=== PATIENT | male | born 1985 | race Caucasian/White ===

== ENCOUNTER 2021-01-23 04:56 | Emergency (ER) | payer BC ==
[~2021-01-23] VITALS: Ht 172.7 cm; Wt 83.9 kg
[2021-01-23 05:01] VITALS: BP_SYST 131
--- NOTE | 2021-01-23 05:01 | NUR ---
Came in ER ambulatory from home this 35 year old male, AAOX4, breathing spontaneously at room air, not in distress noted. With chief complaints of right flank pain since 1AM but worsened at 3AM associated with burning scanty urination, denies nausea and vomiting. No known medical/ surgical hsitory, denies allergy. Vital signs stable
--- NOTE | 2021-01-23 05:03 | NUR ---
Pt came into ER with complaint of right sided sharp flank pain X1day and the feeling of needing to pee but unable to pee. Pt is AAOX4 speaking full sentences. Pt reports some burning upon urination. Pt reports this happened X7days ago but went away. VSS jose angelin boogie stone attached to monitor.
--- NOTE | 2021-01-23 05:04 | NUR ---
Pt ambulated to restroom for urine specimen.
--- NOTE | 2021-01-23 05:10 | NUR ---
# 20 gauge angiocath placed to RAC. Use of asceptic technique. Opsite placed over site. Blood return noted. Blood for lab drawn from site. Flushed with 10 cc of normal saline. No evidence of infiltration noted. Patient tolerated well.
--- NOTE | 2021-01-23 05:17 | NUR ---
Blood and urine specimen collected and sent to lab.
--- NOTE | 2021-01-23 05:18 | NUR ---
Seen and examined by Dr. Ceron, ER Attending
[2021-01-23] MEDS: NACL 0.9% 1,000 ML IV ONE (05:22)
[2021-01-23] MEDS: KETOROLAC TROMETHAMINE 30 MG VIAL IVP ONE (05:23)
[2021-01-23 05:25] LABS: HEMATOCRIT 44.1 % (36-54); MEAN CORPUSCULAR VOLUME 88 fL (79.0-98.0); RED CELL DISTRIBUTION WIDTH 13.8 % (9.0-15.0)
[2021-01-23 05:27] LABS: BILIRUBIN,URINE NEGATIVE (NEGATIVE); BLOOD, URINE 3+ (NEGATIVE); CLARITY/URINE CLEAR (CLEAR); COLOR,URINE YELLOW (YELLOW); GLUCOSE,URINE NEGATIVE (NEGATIVE); KETONES,URINE NEGATIVE (NEGATIVE); LEUKOCYTE ESTERASE ,URINE NEGATIVE (NEGATIVE); NITRITE, URINE NEGATIVE (NEGATIVE); PH,URINE 5.5 (5.0-8.0); PROTEIN URINE NEGATIVE (NEGATIVE); UROBILINOGEN,URINE 0.2 (0.2-1.0)
[2021-01-23 05:29] LABS: BACTERIA,URINE FEW /HPF (None Seen); BASOPHILS % (AUTO) 0.4 % (0.0-2.0); EOSINOPHILS # (AUTO) 0.4 K/uL (0.0-0.4); EOSINOPHILS % (AUTO) 4.3 % (0.0-4.0); HEMOGLOBIN 14.9 g/dL (14.0-18.0); LYMPHOCYTES # (AUTO) 4.5 K/uL (1.0-5.5); LYMPHOCYTES % (AUTO) 44.2 % (20.5-51.5); MEAN CORPUSCULAR HEMOGLOBIN 30 pg (27-31); MEAN CORPUSCULAR HGB CONC 34 % (32-36); MONOCYTES # (AUTO) 0.8 K/uL (0.0-1.0); MONOCYTES % (AUTO) 7.5 % (1.7-9.3); NEUTROPHILS # (AUTO) 4.5 K/uL (1.8-7.7); NEUTROPHILS % (AUTO) 43.6 % (40.0-70.0); PLATELET COUNT (AUTO) 214 K/uL (130-430); RBC,URINE 20-50 /HPF (0-3); RED BLOOD CELL COUNT(AUTO) 5.04 MIL/uL (4.2-6.2); WBC,URINE 0-3 /HPF (0-3); WHITE BLOOD COUNT (AUTO) 10.3 K/uL (4.8-10.8)
[2021-01-23 05:32] LABS: CALCIUM 8.3 mg/dL (8.4-11.0); CREATININE 0.92 mg/dL (0.55-1.30); POTASSIUM 3.5 mmol/L (3.5-5.1)
[2021-01-23 05:37] LABS: ALBUMIN 3.9 g/dL (3.4-4.8); TOTAL BILIRUBIN 0.3 mg/dL (0.0-1.0)
--- NOTE | 2021-01-23 05:42 | NUR ---
Patient transported to radiology via wheelchair, accompanied by tech.
--- NOTE | 2021-01-23 05:56 | NUR ---
Pt back from CT reattached to monitor.
--- NOTE | 2021-01-23 07:20 | NUR ---
Care endorsed to Lili SANTIAGO
[2021-01-23] MEDS ORDERED: HYDR-3917 PO ×2 (08:27→08:30)
[2021-01-23] MEDS ORDERED: IBUP-1969 PO (08:27)
--- NOTE | 2021-01-23 08:33 | NUR ---
report received from Joe SANTIAGO
[2021-01-23 08:39] VITALS: BP_SYST 131
[2021-01-23] MEDS: MORPHINE 4 MG INJ. 4 MG/ML VIAL IM ONE (08:40)
== END 2021-01-23 08:39 | disposition home or self-care (01) ==
LOC: SED 04:56
DX: N23 Unspecified renal colic (principal); Z79.899 Other long term (current) drug therapy
CPT/HCPCS: 36415; 74176; 76376; 80053; 81000; 85025; 96361; 96374; 96375; 99284; J1885; J2270; J7030

== ENCOUNTER 2021-01-25 14:52 | Emergency (ER) | payer BC ==
[~2021-01-25] VITALS: Ht 172.7 cm; Wt 86.2 kg
[~2021-01-25 14:52] MED LIST: HYDR-3917 PO; IBUP-1969 PO
[2021-01-25 15:15] VITALS: BP_SYST 129
== END 2021-01-25 17:30 | disposition left against medical advice (07) ==
LOC: SED 14:52
DX: R10.9 Unspecified abdominal pain (principal); Z53.21 Procedure and treatment not carried out due to patient leaving prior to being seen by health care provider